=== PATIENT | male | born 1940 | race Caucasian/White ===

== ENCOUNTER → 2022-12-01 | Outpatient (REF) | payer MEDICARE, OTHER ==
[2022-12-01 13:39] LABS: FREE T4 0.97 NG/DL (0.89-1.76); THYROID STIMULATING HORMONE 0.115 uIU/ML (0.55-4.78); TOTAL T3 54.7 NG/DL (60.0-181.0)
== END ==
LOC: M LABWUC 11:46
DX: E03.9 Hypothyroidism, unspecified (principal)

== ENCOUNTER → 2024-10-02 | Outpatient (CLI) | payer MEDICARE, OTHER | LOC: M WUC 12:33 | PROVIDERS: ATTEND Physician Assistant | DX: M25.531 Pain in right wrist (principal) ==